=== PATIENT | female | born 1985 | race Hispanic/Latino ===

== ENCOUNTER → 2018-04-11 | Day surgery (SDC) | payer BC ==
[~2018-04-11] VITALS: Ht 165.1 cm; Wt 108.9 kg
[~2018-04-11] MED LIST: GLUCAGON FOR INJ 1 MG VIAL IV ONE; IOPAMIDOL 370 MG/ML 200 ML INFUS..BTL INJ ONE; PROPOFOL IV EMULSION 10 MG/ML 20 ML VIAL ONE; SODIUM CHLORIDE 0.9% 50ML 50 ML ONE
--- NOTE | 2018-04-11 15:47 | Diagnostic Imaging Report ---
PROCEDURE: SOFT TISSUE NECK COMPARISON: None. INDICATIONS: PAIN WHEN SWALLOWING FINDINGS: Soft tissues are grossly unremarkable. No radiopaque foreign bodies. Normal alignment of the visualized cervical spine, without spondylolisthesis. No lytic lesion. Prevertebral soft tissues are normal. CONCLUSION: 1. Soft tissues are grossly unremarkable. No radiopaque foreign body. CT soft tissue neck is recommended if there is clinical concern for abscess or other pathology. Akash Page M.D. Dictated by: Akash Page M.D. on 04/11/2018 at 15:49 Electronically approved by: Akash Page M.D. on 04/11/2018 at 15:49
[2018-04-11 16:31] LABS: BASOPHILS % 0.1 % (0.0-1.0); EOSINOPHILS # (AUTO) 0.1 (0.0-0.4); EOSINOPHILS % 1.6 % (0.0-6.0); HEMATOCRIT 37.6 % (34.2-44.1); HEMOGLOBIN 12.6 g/dL (12.0-16.0); LYMPHOCYTES # (AUTO) 2.9 (1.0-3.2); LYMPHOCYTES % 33.8 % (18.0-39.1); MEAN CORPUSCULAR HEMOGLOBIN 28.8 pg (28-32); MEAN CORPUSCULAR HGB CONC 33.5 g/dL (31-35); MEAN CORPUSCULAR VOLUME 85.8 fL (81-99); MONOCYTES # (AUTO) 0.5 (0.2-0.8); MONOCYTES % 6.2 % (4.4-11.3); NEUTROPHILS # (AUTO) 4.9 (2.1-6.9); NEUTROPHILS % 57.5 % (38.7-80.0); PLATELET COUNT 330 x10e3/uL (140-360); RED BLOOD COUNT 4.38 x10e6/uL (3.6-5.1); RED CELL DISTRIBUTION WIDTH 12.4 % (11.7-14.4)
[2018-04-11 16:50] LABS: ALANINE AMINOTRANSFERASE 39 IU/L (0-55); ALBUMIN 3.7 g/dL (3.5-5.0); ALBUMIN/GLOBULIN RATIO 0.9 (0.8-2.0); ALKALINE PHOSPHATASE 87 IU/L (40-150); ANION GAP 12.5 mmol/L (8-16); BLOOD UREA NITROGEN 8 mg/dL (7-26); BUN/CREATININE RATIO 12 (6-25); CALCIUM 9.4 mg/dL (8.4-10.2); CARBON DIOXIDE 26 mmol/L (22-29); CHLORIDE 102 mmol/L (98-107); CREATININE, SERUM 0.65 mg/dL (0.57-1.11); EST GLOMERULAR FILTRATION RATE > 60 ML/MIN (60-); GLUCOSE 111 mg/dL (74-118); POTASSIUM 3.5 mmol/L (3.5-5.1); SODIUM 137 mmol/L (136-145)
--- NOTE | 2018-04-11 18:39 | Diagnostic Imaging Report ---
EXAMINATION: CT of the neck with contrast HISTORY: Rule out foreign body, swallow chicken, stuck in throat COMPARISON: None TECHNIQUE: Multidetector helical axial images were obtained from the sternal notch through the skull base during intravenous infusion of iodinated contrast material. Images were reconstructed using soft tissue and bone algorithms and were viewed in multiplanar format. Intravenous contrast: 100 mL of Omnipaque 300. FINDINGS: Foreign body: Approximately 3 mm diameter x 12 m length linear hyperdense foreign body (which resembles a fishbone) is seen within the cervical esophagus at the level of the C6-C7 intervertebral disc, better visualized on axial soft tissue image 29 and coronal image 41. It follows an oblique orientation from right superior to left inferior (please see arrows on coronal images). Nodes: No lymphadenopathy. Sinuses: Mucosal intraoperative thickening of the frontal sinuses, partial opacification of the bilateral anterior ethmoidal, sphenoid and right greater left maxillary sinuses. Oral cavity: Unremarkable. Salivary glands: Parotid and submandibular glands unremarkable. Pharynx: Unremarkable. Larynx: Unremarkable. Thyroid gland: Unremarkable. Upper esophagus: Unremarkable. Blood vessels: Unremarkable. Bones: Unremarkable. IMPRESSION: 1. Consistent with thin radiopaque foreign body within the cervical esophagus as detailed above. No evidence of perforation at this time. A GI consult is recommended. 2. Incidentally noted sinusitis. The findings were discussed with the ER and FELLER HAND taking care of the patient Brian Tena at the time of this dictation. Signed by: Dr. Tania Li M.D. on 04/11/2018 6:35 PM
--- OUTSIDE RECORDS SUMMARY | 2018-04-11 19:38 | XMS REPORT ---
Author Author [facility] Address Unknown Phone Unavailable Care Team Providers Care Senior Technical Manager Name Role Phone JIM KEY Unavailable Unavailable Problems This patient has no known problems. Allergies, Adverse Reactions, Alerts This patient has no known allergies or adverse reactions. Medications This patient has no known medications. Results Test Description Test Time Test Comments Text Results Atomic Results Result Comments CT SOFT TISSUE NECK W [place] [address] Patient Name: KALA JAIN MR #: [id number] : 1985 Age/Sex: 32/F Req #: [id number] Adm Physician: Ordered by: BRIAN PACKER SCAFFOLDER Report #: [id number] Location: ER Room/Bed: Procedure: [id number] CT/CT SOFT TISSUE NECK W Exam Date: 04/11/18 Exam Time: 1730 REPORT STATUS: Signed EXAMINATION: CT of the neck with contrast HISTORY: Rule out foreign body, swallow chicken, stuck in throat COMPARISON: None TECHNIQUE: Multidetector helical axial images were obtained from the sternal notch through the skull base during intravenous infusion of iodinated contrast material. Images were reconstructed using soft tissue and bone algorithms and were viewed in multiplanar format. Intravenous contrast: 100 mL of Omnipaque 300. FINDINGS: Foreign body: Approximately 3 mm diameter x 12 m length linear hyperdense foreign body (which resembles a fishbone) is seen within the cervical esophagus at the level of the C6-C7 intervertebral disc, better visualized on axial soft tissue image 29 and coronal image 41. It follows an oblique orientation from right superior to left inferior (please see arrows on coronal images). Nodes: No lymphadenopathy. Sinuses: Mucosal intraoperative thickening of the frontal sinuses, partial opacification of the bilateral anterior ethmoidal, sphenoid and right greater left maxillary sinuses. Oral cavity: Unremarkable. Salivary glands: Parotid and submandibular glands unremarkable. Pharynx: Unremarkable. Larynx: Unremarkable. Thyroid gland: Unremarkable. Upper esophagus: Unremarkable. Blood vessels: Unremarkable. Bones: Unremarkable. IMPRESSION: 1. Consistent with thin radiopaque foreign body within the cervical esophagus as detailed above. No evidence of perforation at this time. A GI consult is recommended. 2. Incidentally noted sinusitis. The findings were discussed with the ER and SCAFFOLDER taking care of the patient Brian Packer at the time of this dictation. Signed by: Dr. Neema Li M.D. on 04/11/2018 6:35 PM Dictated By: NEEMA LI MD 34 Transcribed By: SOM on 04/11/181834 COPY TO: BRIAN PACKER SCAFFOLDER NECK SOFT TISSUE [place] [address] Patient Name: KALA JAIN MR #: [id number] : 1985 Age/Sex: 32/F Req #: [id number] Adm Physician: Ordered by: BRIAN PACKER SCAFFOLDER Report #: [id number] Location: ER Room/Bed: Procedure: [id number] DX/NECK SOFT TISSUE Exam Date: 04/11/18 Exam Time: 1530 REPORT STATUS: Signed PROCEDURE: SOFT TISSUE NECK COMPARISON : None. INDICATIONS: PAIN WHEN SWALLOWING FINDINGS: Soft tissues are grossly unremarkable. No radiopaque foreign bodies. Normal alignment of the visualized cervical spine, without spondylolisthesis. No lytic lesion. Prevertebral soft tissues are normal. CONCLUSION: 1. Soft tissues are grossly unremarkable. No radiopaque foreign body. CT soft tissue neck is recommended if there is clinical concern for abscess or other pathology. Gregory Page M.D. Dictated by: Gregory Page M.D. on 04/11/2018 at 15:49 Electronically approved by: Gregory Page M.D. on 04/11/2018 at 15:49 Dictated By: GREGORY PAGE MD [id number] Transcribed By: SABA on 04/11/18 1544 COPY TO: BRIAN PACKER NP
[2018-04-11 19:54] VITALS: BP 148/80
--- NOTE | 2018-04-12 13:14 | Operative Report ---
DATE OF PROCEDURE: April 11, 2018 REFERRING PHYSICIAN: PROCEDURE PERFORMED: Esophagogastroduodenoscopy with foreign body removal. INDICATIONS FOR PROCEDURE: Foreign body in esophagus. MEDICATION: Patient was done under MAC. Please see anesthesiologist's note. PROCEDURE: With patient in lateral decubitus position flexible fiberoptic Olympus gastroscope was introduced into the esophagus under direct visualization. The scope was then advanced with ease into the cervical esophagus under direct visualization without any difficulty. There was a minute piece of chicken bone versus cartilage was noted and that was removed per the biopsy forceps. The scope was then reintroduced into the esophagus and the rest of the esophagus was grossly within normal limits other than for some patchy mild inflammatory changes in the distal esophagus and the mucosa overlying the antrum and the body revealed some patchy erythema. Pylorus was of normal contour and shape, was intubated with ease and the scope was advanced all the way to the 2nd portion of the duodenum. The scope was then withdrawn slowly. Mucosa overlying the proximal 2nd portion and the duodenal bulb appeared to be within normal limits. The scope was then withdrawn back into the stomach and retroflexed. Mucosa overlying the fundus and the cardia appeared to be within normal limits. The scope was then straightened out and it was subsequently withdrawn. Patient tolerated the procedure well. IMPRESSIONS 1. Minute piece of chicken bone removed from the cervical esophagus per biopsy forceps. 2. Distal esophagitis, mild. 3. Gastritis, mild. PLAN: Initiate Protonix 40 mg 1 p.o. q.a.m a.c. Job#: [id number] CQ
== END | disposition home or self-care (01) ==
LOC: ER 14:56 → OR 19:36
PROVIDERS: ATTEND Internal Medicine Gastroenterology
DX: T18.128A Food in esophagus causing other injury, initial encounter (principal); K29.70 Gastritis, unspecified, without bleeding; K20.9 Esophagitis, unspecified; E66.01 Morbid (severe) obesity due to excess calories; X58.XXXA Exposure to other specified factors, initial encounter
CPT/HCPCS: 36415; 43247; 70360; 70491; 80053; 84702; 85025; 99284; J1610; Q9967; 43235